=== PATIENT | male | born 1985 | race Caucasian/White ===

== ENCOUNTER 2018-07-22 20:48 | Emergency (ER) | payer SELFPAY ==
--- NOTE | 2018-07-22 21:11 | Emergency Department Report ---
Blank Doc - Documentation Documentation: This is a 33-year-old male that presents with lower back pain s/p heavy lifting at work. This initial assessment/diagnostic orders/clinical plan/treatment(s) is/are subject to change based on patient's health status, clinical progression and re- assessment by fellow clinical providers in the ED. Further treatment and workup at subsequent clinical providers discretion. Patient/guardians urged not to elope from the ED as their condition may be serious if not clinically assessed and managed. Initial orders include: 1- Patient sent to [facility] for further evaluation and treatment 2-xray
[2018-07-22] MEDS ORDERED: FLEXERIL ONE (21:51)
[2018-07-22] MEDS ORDERED: NORCO 5/325 ONE (21:51)
[2018-07-22] MEDS ORDERED: NORCO 5/325 PO ONE (21:52)
[2018-07-22] MEDS ORDERED: FLEXERIL PO ONE (21:52)
--- NOTE | 2018-07-22 21:52 | XRay Report ---
PROCEDURE: XR SPINE LUMBOSACRAL 2-3V HISTORY: low back pain FINDINGS: AP and lateral views of the lumbar spine were acquired and demonstrate no fracture or malal ignment of the lumbar spine. The intervertebral disc space heights appear preserved. IMPRESSION: No fracture or malalignment of the lumbar spine This document is electronically signed by Nicola Wilkins MD., July 22 2018 09:50:15 PM ET
--- NOTE | 2018-07-22 23:27 | Emergency Department Report ---
ED Back Pain/Injury HPI - General Chief Complaint: Back Pain/Injury Stated Complaint: SHARP BACK PAIN Time Seen by Provider: 07/22/18 21:08 Source: patient Limitations: No Limitations - History of Present Illness Initial Comments: This is a 33-year-old male who presents to the emergency room with low back pain. Patient states he was lifting a heavy shelf into his vehicle at [employer] and felt a pop. Patient states he dropped the shelf and eased to the ground. His had to assist him into the vehicle. states patient was diaphoretic and complained in the chart pain to the lower back. Patient is a current smoker one pack per day with no other significant medical history. Patient reports pain is worse when he attempts to move his legs. He denies urinary or bowel changes, numbness or tingling, swelling, bruising, weakness. MD Complaint: back pain, back injury -: This evening Similar Symptoms Previously: No Place: street Radiation: none Severity: severe Severity scale (0 -10): 10 Quality: sharp Consistency: intermittent Improves With: none Worsens With: movement, supine, walking Context: while lifting Associated Symptoms: difficulty walking, diaphoresis. denies: numbness, difficulty urinating, incontinence, fever/chills, nausea/vomiting - Related Data Previous Rx's Medication Instructions Recorded Last Taken Type Acetaminophen/Codeine [Tylenol 1 tab PO Q6H PRN #12 tab 07/23/18 Unknown Rx /Codeine # 3 tab] Diclofenac Sodium [Solaraze 3%] 100 gm TP Q4H PRN 7 Days #1 07/23/18 Unknown Rx gel..gram. Ibuprofen [Motrin 600 MG tab] 600 mg PO Q8H PRN #20 tablet 07/23/18 Unknown Rx Prednisone [predniSONE 10 mg 10 mg PO .TAPER #1 tab.ds.pk 07/23/18 Unknown Rx (6-Day Pack, 21 Tabs)] methOCARBAMOL [Robaxin TAB] 500 mg PO BID PRN #15 tab 07/23/18 Unknown Rx Allergies Allergy/AdvReac Type Severity Reaction Status Date / Time No Known Allergies Allergy Verified 07/22/18 20:50 ED Review of Systems ROS: Stated complaint: SHARP BACK PAIN Other details as noted in HPI Constitutional: denies: chills, fever Respiratory: denies: cough, shortness of breath, wheezing Cardiovascular: denies: chest pain, palpitations Gastrointestinal: denies: abdominal pain, nausea, diarrhea Musculoskeletal: back pain. denies: joint swelling, arthralgia Skin: as per HPI Neurological: denies: headache, weakness, paresthesias Psychiatric: denies: anxiety, depression ED Back Pain Physical Exam - Exam General: Vital signs noted. No distress. Alert and acting appropriately. Back/Abdomen: Yes Sacroiliac Tenderness, No Abdominal Tenderness, No Perithoracic Tenderness, No Perilumbar Tenderness, No Flank Tenderness, No Straight Leg Raise Pain (unable to tolerate exam) Neuro: Yes Normal Sensation, Yes Normal DTR's, Yes Normal Gait, No Motor Weakness ED Course Vital Signs 07/22/18 22:00 Pulse Rate 81 Respiratory 18 Rate Blood Pressure 112/62 O2 Sat by Pulse 100 Oximetry Ed Back Pain Tests - Tests Tests: Normal X Rays ED Medical Decision Making - Radiology Data Radiology results: report reviewed PROCEDURE: XR SPINE LUMBOSACRAL 2-3V HISTORY: low back pain FINDINGS: AP and lateral views of the lumbar spine were acquired and demonstrate no fracture or malalignment of the lumbar spine. The intervertebral disc space heights appear preserved. IMPRESSION: No fracture or malalignment of the lumbar spine - Medical Decision Making Patient was examined by me. Vitals are normal and patient is in no acute distress. Obtained a x-ray of L-spine. X-rays dictated by radiologist and no acute findings. Patient given [place], Flexeril, and dexamethasone while in the ER. There is no change in urinary or bowel pattern at this time. There is no weakness or paresthesias to lower extremity to be concerned of cauda equina syndrome. This is suspected to be acute nontraumatic radiculopathic pain. Start diclofenac topical gel, Robaxin, naproxen, Tylenol No. 3, prednisone taper. Given referral to orthopedic and PCP for follow-up. Patient discharged home stable. Critical care attestation.: If time is entered above; I have spent that time in minutes in the direct care of this critically ill patient, excluding procedure time. ED Disposition Clinical Impression: Acute radicular low back pain Low back pain Qualifiers: Chronicity: acute Back pain laterality: bilateral Sciatica presence: without sciatica Qualified Code(s): M54.5 - Low back pain Disposition: TO HOME OR SELFCARE Is pt being admited?: No Does the pt Need Aspirin: No Condition: Stable Instructions: Lumbar Radiculopathy (ED) Additional Instructions: Rest Use ice or heat on affected area for 20 minutes and off for 2 hours. Take pain medication as needed for pain. Don't drive or operate heavy machinery while taking muscle relaxers because they may cause drowsiness. Follow up with Primary Care Provider in 2-3 days. Prescriptions: Ibuprofen [Motrin 600 MG tab] 600 mg PO Q8H PRN #20 tablet PRN Reason: Pain Prednisone [predniSONE 10 mg (6-Day Pack, 21 Tabs)] 10 mg PO .TAPER #1 tab.ds.pk methOCARBAMOL [Robaxin TAB] 500 mg PO BID PRN #15 tab PRN Reason: Muscle Spasm Diclofenac Sodium [Solaraze 3%] 100 gm TP Q4H PRN 7 Days #1 gel..gram. PRN Reason: Pain, Moderate (4-6) Acetaminophen/Codeine [Tylenol /Codeine # 3 tab] 1 tab PO Q6H PRN #12 tab PRN Reason: Pain , Severe (7-10) Referrals: [facility] [Outside] - 3-5 Days [facility] [Outside] - 3-5 Days [facility] [Outside] - 3-5 Days CRISTINA FONSECA MD [Staff Physician] - 3-5 Days [facility] [Provider Group] - 3-5 Days Forms: Accompanied Note, Work/School Release Form(ED) Time of Disposition: 00:18
[2018-07-23] MEDS ORDERED: DECADRON IM ONE (00:11)
[2018-07-23 00:45] VITALS: BP 106/58
== END 2018-07-23 00:35 | disposition home or self-care (01) ==
LOC: ED 20:48
DX: M54.16 Radiculopathy, lumbar region (principal)
CPT/HCPCS: 72100; 96372; 99283; J1100